=== PATIENT | female | born 1950 | race Hispanic/Latino ===

== ENCOUNTER 2017-12-02 13:35 | Emergency (ER) | payer OTHER ==
[~2017-12-02] VITALS: Ht 157.5 cm; Wt 67.6 kg
--- NOTE | 2017-12-02 14:10 | Diagnostic Imaging Report ---
EXAMINATION: CHEST 2 VIEWS COMPARISON: None INDICATION: Shortness of breath, productive cough DISCUSSION: LINES: None. LUNGS: The lungs are well inflated and clear. Mild bronchial wall thickening. No pneumonia or pulmonary edema. PLEURA: No pleural effusion or pneumothorax. HEART AND MEDIASTINUM: The cardiomediastinal silhouette is unremarkable. BONES AND SOFT TISSUES: No focal osseous lesion. The soft tissues are normal. IMPRESSION: Mild bronchial wall thickening suggestive of bronchitis. No infiltrates to suggest pneumonia. Signed by: Dr. Ирина Gifford MD on 12/02/2017 2:07 PM
[2017-12-02] MEDS ORDERED: METHYLPREDNISOLONE SOD SUCC 125 MG/2ML VIAL IV ONE (14:15)
[2017-12-02] MEDS ORDERED: ALBUTEROL/IPRATROPIUM 3 ML NEB NEB ONE (14:15)
[2017-12-02] MEDS ORDERED: SODIUM CHLORIDE 0.9% 1000ML 1,000 ML IV SCH (14:15)
[2017-12-02 14:24] LABS: BASOPHILS % 0.3 % (0.0-1.0); EOSINOPHILS # (AUTO) 0.2 (0.0-0.4); EOSINOPHILS % 1.8 % (0.0-6.0); HEMATOCRIT 38.3 % (34.2-44.1); LYMPHOCYTES # (AUTO) 1.4 (1.0-3.2); LYMPHOCYTES % 15.9 % (18.0-39.1); MEAN CORPUSCULAR HEMOGLOBIN 29.8 pg (28-32); MEAN CORPUSCULAR HGB CONC 33.9 g/dL (31-35); MEAN CORPUSCULAR VOLUME 87.8 fL (81-99); MONOCYTES # (AUTO) 0.4 (0.2-0.8); MONOCYTES % 4.8 % (4.4-11.3); NEUTROPHILS # (AUTO) 6.8 (2.1-6.9); NEUTROPHILS % 76.6 % (38.7-80.0); PLATELET COUNT 246 x10e3/uL (140-360); RED BLOOD COUNT 4.36 x10e6/uL (3.6-5.1); RED CELL DISTRIBUTION WIDTH 12.2 % (11.7-14.4)
[2017-12-02 14:47] LABS: ALANINE AMINOTRANSFERASE 14 IU/L (0-55); ALBUMIN 3.6 g/dL (3.5-5.0); ALKALINE PHOSPHATASE 90 IU/L (40-150); ANION GAP 14.2 mmol/L (8-16); BLOOD UREA NITROGEN 18 mg/dL (7-26); BUN/CREATININE RATIO 23 (6-25); CALCIUM 9.2 mg/dL (8.4-10.2); CARBON DIOXIDE 25 mmol/L (22-29); CHLORIDE 103 mmol/L (98-107); CREATINE KINASE 54 IU/L (29-168); CREATININE, SERUM 0.77 mg/dL (0.57-1.11); EST GLOMERULAR FILTRATION RATE > 60 ML/MIN (60-); GLUCOSE 109 mg/dL (74-118); POTASSIUM 4.2 mmol/L (3.5-5.1); SODIUM 138 mmol/L (136-145)
[2017-12-02 14:51] LABS: INR 1.11; PROTHROMBIN TIME 13.5 seconds (11.9-14.5)
[2017-12-02 14:52] LABS: PARTIAL THROMBOPLASTIN TIME 34.8 seconds (23.8-35.5)
== END 2017-12-02 17:06 | disposition home or self-care (01) ==
LOC: ER 13:42
DX: R06.00 Dyspnea, unspecified (principal); R05 Cough; J20.9 Acute bronchitis, unspecified; I10 Essential (primary) hypertension; I25.10 Atherosclerotic heart disease of native coronary artery without angina pectoris
CPT/HCPCS: 36415; 71046; 80053; 82550; 82553; 83880; 84484; 85025; 85610; 85730; 87400; 94640; 99284; J2930; J7030

== ENCOUNTER 2017-12-06 15:48 | Emergency (ER) | payer OTHER ==
[~2017-12-06] VITALS: Ht 157.5 cm; Wt 67.6 kg
--- OUTSIDE RECORDS SUMMARY | 2017-12-06 15:51 | XMS REPORT ---
Author Author [facility] Address Unknown Phone Unavailable Care Team Providers Care Bilingual Speech Therapist Name Role Phone LUIS COLEY Unavailable Unavailable Problems This patient has no known problems. Allergies, Adverse Reactions, Alerts This patient has no known allergies or adverse reactions. Medications This patient has no known medications. Results Test Description Test Time Test Comments Text Results Atomic Results Result Comments CHEST 2 VIEWS [place] [address] Patient Name: JUNE LYNN MR #: [id number] : 1950 Age/Sex: 67/F Req #: [id number] Adm Physician: Ordered by: LUIS COLEY MD Report #: [id number] Location: ER Room/Bed: Procedure: [id number] DX/CHEST 2 VIEWS Exam Date: 12/02/17 Exam Time: 1350 REPORT STATUS: Signed EXAMINATION: CHEST 2 VIEWS COMPARISON: None INDICATION: Shortness of breath, productive cough DISCUSSION: LINES: None. LUNGS: The lungs are well inflated and clear. Mild bronchial wall thickening. No pneumonia or pulmonary edema. PLEURA: No pleural effusion or pneumothorax. HEART AND MEDIASTINUM: The cardiomediastinal silhouette is unremarkable. BONES AND SOFT TISSUES: No focal osseous lesion. The soft tissues are normal. IMPRESSION: Mild bronchial wall thickening suggestive of bronchitis. No infiltrates to suggest pneumonia. Signed by: Dr. Ricardo Gifford MD on 12/02/2017 2:07 PM Dictated By: RICARDO GIFFORD MD 06 Transcribed By: GHAZAL on 1406 COPY TO: LUIS COLEY MD
--- OUTSIDE RECORDS SUMMARY | 2017-12-06 15:51 | XMS REPORT | Continuity of Care Document ---
Author Author [facility] Organization [facility] Address [address] [place] [address] Phone Unavailable Care Team Providers Care Film Historian Name Role Phone DAJUAN KATZ MD PCP Advance Directives No advance directive information available. Problems No problem information available. Medications No medication information available. Social History No social history information available. Hospital Discharge Instructions No hospital discharge instruction information available. Plan of Care Discharge Date 12/02/17 5:06pm Disposition HOME, SELF-CARE Condition at Discharge Stable Instructions/Education Provided Bronchitis (Acute) - Adult Forms Provided Work/School Excuse Prescriptions See Medication Section Referrals DAJUAN KATZ MD Address: [address] [place] [address] Additional Instructions/Education take prescriptions as directed. return if worsen. Functional Status No functional status information available. Allergies, Adverse Reactions, Alerts No known allergies. Immunizations No immunization information available. Vital Signs Acute Vital Signs Vital Response Date/Time Pulse Pulse Rate (adult) 68 bpm (60 - 90) 12/02/2017 2:44pm Respiratory Rate 16 bpm (12 - 24) 12/02/2017 2:44pm Height 5 ft 2 in 12/02/2017 1:50pm Weight 149 lb 12/02/2017 1:50pm Body Mass Index 27.3 kg/m^2 12/02/2017 1:50pm Results Laboratory Results Test Name Result Units Flags Reference Collection Date/Time Result Date/ Time Comments White Blood Count 8.88 x10e3/uL 4.8-10.8 12/02/2017 1:40pm 12/02/2017 2 :25pm Red Blood Count 4.36 x10e6/uL 3.6-5.1 12/02/2017 1:40pm 12/02/2017 2: 25pm Hemoglobin 13.0 g/dL 12.0-16.0 12/02/2017 1:40pm 12/02/2017 2:25pm Hematocrit 38.3 % 34.2-44.1 12/02/2017 1:40pm 12/02/2017 2:25pm Mean Corpuscular Volume 87.8 fL 81-99 12/02/2017 1:40pm 12/02/2017 2: 25pm Mean Corpuscular Hemoglobin 29.8 pg 28-32 12/02/2017 1:40pm 12/02/2017 2:25pm Mean Corpuscular Hemoglobin Concent 33.9 g/dL 31-35 12/02/2017 1:40pm 12/02/2017 2:25pm Red Cell Distribution Width 12.2 % 11.7-14.4 12/02/2017 1:40pm 2017 2:25pm Platelet Count 246 x10e3/uL 140-360 12/02/2017 1:40pm 12/02/2017 2: 25pm Neutrophils (%) (Auto) 76.6 % 38.7-80.0 12/02/2017 1:40pm 12/02/2017 2: 25pm Lymphocytes (%) (Auto) 15.9 % L 18.0-39.1 12/02/2017 1:40pm 12/02/2017 2 :25pm Monocytes (%) (Auto) 4.8 % 4.4-11.3 12/02/2017 1:40pm 12/02/2017 2: 25pm Eosinophils (%) (Auto) 1.8 % 0.0-6.0 12/02/2017 1:40pm 12/02/2017 2: 25pm Basophils (%) (Auto) 0.3 % 0.0-1.0 12/02/2017 1:40pm 12/02/2017 2:25pm IM GRANULOCYTES % 0.6 % 0.0-1.0 12/02/2017 1:40pm 12/02/2017 2:25pm Neutrophils # (Auto) 6.8 2.1-6.9 12/02/2017 1:40pm 12/02/2017 2:25pm Lymphocytes # (Auto) 1.4 1.0-3.2 12/02/2017 1:40pm 12/02/2017 2:25pm Monocytes # (Auto) 0.4 0.2-0.8 12/02/2017 1:40pm 12/02/2017 2:25pm Eosinophils # (Auto) 0.2 0.0-0.4 12/02/2017 1:40pm 12/02/2017 2:25pm Basophils # (Auto) 0.0 0.0-0.1 12/02/2017 1:40pm 12/02/2017 2:25pm Absolute Immature Granulocyte (auto 0.05 x10e3/uL 0-0.1 12/02/2017 1: 40pm 12/02/2017 2:25pm Prothrombin Time 13.5 seconds 11.9-14.5 12/02/2017 1:40pm 12/02/2017 2: 53pm Prothromb Time International Ratio 1.11 12/02/2017 1:40pm 2017 2:53pm Oral Anticoagulant Therapy INR Values: 1. Low Intensity Therapy 1.5 - 2.0 2. Moderate Intensity Therapy 2.0 - 3.0 3. High Intensity Therapy(1) 2.5 - 3.5 4. High Intensity Therapy(2) 3.0 - 4.0 5. Panic Value INR > 5.0 Activated Partial Thromboplast Time 34.8 seconds 23.8-35.5 12/02/2017 1: 40pm 12/02/2017 2:53pm Sodium Level 138 mmol/L 136-145 12/02/2017 1:40pm 12/02/2017 2:48pm Potassium Level 4.2 mmol/L 3.5-5.1 12/02/2017 1:40pm 12/02/2017 2:48pm Chloride Level 103 mmol/L 98-107 12/02/2017 1:40pm 12/02/2017 2:48pm Influenza Virus Types A,B Antigen NEGATIVE NEGATIVE 12/02/2017 1:40pm 12/02/2017 2:41pm Carbon Dioxide Level 25 mmol/L 22-12/02/2017 1:40pm 12/02/2017 2: 48pm Anion Gap 14.2 mmol/L 8-16 12/02/2017 1:40pm 12/02/2017 2:48pm Blood Urea Nitrogen 18 mg/dL 7-26 12/02/2017 1:40pm 12/02/2017 2:48pm Creatinine 0.77 mg/dL 0.57-1.11 12/02/2017 1:40pm 12/02/2017 2:48pm BUN/Creatinine Ratio 23 6-25 12/02/2017 1:40pm 12/02/2017 2:48pm Estimat Glomerular Filtration Rate > 60 ML/MIN 60- 12/02/2017 1:40pm 2:48pm Ranges were taken from the National Kidney Disease Education Program and the [employer] literature. Reference ranges: 60 or greater: Normal 16-59 (for 3 consecutive months): Chronic kidney disease 15 or less: Kidney failure Glucose Level 109 mg/dL 74-118 12/02/2017 1:40pm 12/02/2017 2:48pm Calcium Level 9.2 mg/dL 8.4-10.2 12/02/2017 1:40pm 12/02/2017 2:48pm Total Bilirubin 0.9 mg/dL 0.2-1.2 12/02/2017 1:40pm 12/02/2017 2:48pm Aspartate Amino Transf (AST/SGOT) 17 IU/L 5-34 12/02/2017 1:40pm 2017 2:48pm Alanine Aminotransferase (ALT/SGPT) 14 IU/L 0-55 12/02/2017 1:40pm 2:48pm Total Protein 7.2 g/dL 6.5-8.1 12/02/2017 1:40pm 12/02/2017 2:48pm Albumin 3.6 g/dL 3.5-5.0 12/02/2017 1:40pm 12/02/2017 2:48pm Globulin 3.6 g/dL H 2.3-3.5 12/02/2017 1:40pm 12/02/2017 2:48pm Albumin/Globulin Ratio 1.0 0.8-2.0 12/02/2017 1:40pm 12/02/2017 2: 48pm Alkaline Phosphatase 90 IU/L 40-150 12/02/2017 1:40pm 12/02/2017 2: 48pm B-Type Natriuretic Peptide < 10.0 pg/mL 0-100 12/02/2017 1:40pm 2017 2:48pm Creatine Kinase 54 IU/L 29-168 12/02/2017 1:40pm 12/02/2017 2:48pm Creatine Kinase MB 1.30 ng/mL 0-5.0 12/02/2017 1:40pm 12/02/2017 2: 57pm Troponin I < 0.001 ng/mL 0-0.300 12/02/2017 1:40pm 12/02/2017 2:57pm Procedures Procedure Status Date Provider(s) X-ray of chest, two views Active 12/02/17 LUIS COLEY MD Encounters Encounter Location Arrival/Admit Date Discharge/Depart Date Attending Provider Departed Emergency Room [facility] 12/02/17 1:42pm 5:06pm LUIS COLEY MD
[2017-12-06] MEDS ORDERED: MECLIZINE HCL 12.5 MG TAB ONE (16:05)
[2017-12-06] MEDS ORDERED: ONDANSETRON HCL 4 MG ORAL DISINTEGRATING TAB ONE (16:05)
[2017-12-06] MEDS: ONDANSETRON HCL 4 MG ORAL DISINTEGRATING TAB PO ONE (16:08)
[2017-12-06] MEDS: MECLIZINE HCL 12.5 MG TAB PO ONE (16:08)
[2017-12-06] MEDS ORDERED: ZOFRAN ODT4 MG SL (17:03)
[2017-12-06] MEDS ORDERED: MECLIZINE HCL12.5 MG PO (17:04)
== END 2017-12-06 17:46 | disposition home or self-care (01) ==
LOC: ER 15:48
DX: H81.10 Benign paroxysmal vertigo, unspecified ear (principal); I10 Essential (primary) hypertension; I25.10 Atherosclerotic heart disease of native coronary artery without angina pectoris; E78.5 Hyperlipidemia, unspecified
CPT/HCPCS: 93005; 99283

== ENCOUNTER 2021-12-22 10:48 | Emergency (ER) | payer MEDICARE, OTHER ==
[~2021-12-22] VITALS: Ht 157.5 cm; Wt 67.6 kg
[~2021-12-22 10:48] MED LIST: MECLIZINE HCL12.5 MG PO; ZOFRAN ODT4 MG SL
[2021-12-22 12:00] LABS: BASOPHILS % 0.4 % (0.0-1.0); EOSINOPHILS # (AUTO) 0.1 (0.0-0.4); EOSINOPHILS % 0.5 % (0.0-6.0); HEMATOCRIT 39.2 % (34.2-44.1); HEMOGLOBIN 13.3 g/dL (12.0-16.0); LYMPHOCYTES % 8.9 % (18.0-39.1); MEAN CORPUSCULAR HEMOGLOBIN 34.9 pg (28-32); MEAN CORPUSCULAR HGB CONC 33.9 g/dL (31-35); MEAN CORPUSCULAR VOLUME 102.9 fL (81-99); MONOCYTES # (AUTO) 0.5 (0.2-0.8); MONOCYTES % 4.5 % (4.4-11.3); NEUTROPHILS # (AUTO) 9.4 (2.1-6.9); NEUTROPHILS % 85.2 % (38.7-80.0); PLATELET COUNT 265 x10e3/uL (140-360); RED BLOOD COUNT 3.81 x10e6/uL (3.6-5.1)
[2021-12-22] MEDS ORDERED: HYDRALAZINE HCL 20 MG/ML VIAL IV STA (12:02)
[2021-12-22 12:10] LABS: INR 0.96; PROTHROMBIN TIME 13.7 seconds (11.9-14.5)
[2021-12-22 12:18] LABS: ALBUMIN 3.9 g/dL (3.5-5.0); ALBUMIN/GLOBULIN RATIO 1.2 (0.8-2.0); ANION GAP 12.8 mmol/L (8-16); CALCIUM 8.4 mg/dL (8.4-10.2); CREATININE, SERUM 0.69 mg/dL (0.57-1.11); POTASSIUM 3.8 mmol/L (3.5-5.1)
[2021-12-22 12:24] LABS: CREATINE KINASE MB 5.2 ng/mL (0-5.0)
[2021-12-22 14:58] VITALS: BP 135/67
== END 2021-12-22 14:59 | disposition other institution (70) ==
LOC: ER 10:55
DX: I62.00 Nontraumatic subdural hemorrhage, unspecified (principal); I10 Essential (primary) hypertension; E78.5 Hyperlipidemia, unspecified; I25.10 Atherosclerotic heart disease of native coronary artery without angina pectoris; Z20.822 Contact with and (suspected) exposure to COVID-19; I25.2 Old myocardial infarction
CPT/HCPCS: 36415; 70450; 80053; 82550; 82553; 83880; 84484; 85025; 85610; 85730; 93005; 99284; J0360; U0002

== ENCOUNTER 2024-06-18 11:20 | Emergency (ER) | payer MEDICARE ==
[~2024-06-18] VITALS: Ht 149.9 cm; Wt 52.2 kg
[~2024-06-18 11:20] MED LIST changes: +NAPROXEN250 MG PO
[2024-06-18 11:40] VITALS: TEMP 97.3
[2024-06-18] MEDS ORDERED: ATORVASTATIN CA10 MG (12:05)
[2024-06-18] MEDS ORDERED: CLOPIDOGREL75 MG (12:05)
[2024-06-18] MEDS ORDERED: LOSARTAN POTASS25 MG (12:05)
[2024-06-18] MEDS ORDERED: METOPROLOL SUCC25 MG (12:05)
[2024-06-18 13:00] VITALS: PULSE 76; RESP 16; O2SAT 100
== END 2024-06-18 13:00 | disposition home or self-care (01) ==
LOC: ER 12:10
DX: M79.642 Pain in left hand (principal); S62.617A Displaced fracture of proximal phalanx of left little finger, initial encounter for closed fracture; W18.39XA Other fall on same level, initial encounter; Y93.01 Activity, walking, marching and hiking; Y92.89 Other specified places as the place of occurrence of the external cause; I10 Essential (primary) hypertension; E78.5 Hyperlipidemia, unspecified; I25.10 Atherosclerotic heart disease of native coronary artery without angina pectoris; Z95.5 Presence of coronary angioplasty implant and graft
CPT/HCPCS: 99283

== ENCOUNTER 2024-07-30 09:46 | Emergency (ER) | payer OTHER, MEDICARE ==
[~2024-07-30] VITALS: Ht 149.9 cm; Wt 52.2 kg
[~2024-07-30 09:46] MED LIST changes: +ATORVASTATIN CA10 MG; +CLOPIDOGREL75 MG; +LOSARTAN POTASS25 MG; +METOPROLOL SUCC25 MG
[2024-07-30 10:01] VITALS: PULSE 86; RESP 19; TEMP 98.2; O2SAT 98
[2024-07-30 12:36] VITALS: BP 142/76; PULSE 87; RESP 16; TEMP 98.2
== END 2024-07-30 12:36 | disposition home or self-care (01) ==
LOC: ER 09:54
DX: S00.83XA Contusion of other part of head, initial encounter (principal); W01.0XXA Fall on same level from slipping, tripping and stumbling without subsequent striking against object, initial encounter; Y93.01 Activity, walking, marching and hiking; Y92.89 Other specified places as the place of occurrence of the external cause; I10 Essential (primary) hypertension; I25.10 Atherosclerotic heart disease of native coronary artery without angina pectoris; E78.5 Hyperlipidemia, unspecified; Z95.5 Presence of coronary angioplasty implant and graft
CPT/HCPCS: 70450; 99283